=== PATIENT | female | born 1975 | race Caucasian/White ===

== ENCOUNTER 2017-03-27 20:37 | Emergency (ER) | payer SELFPAY ==
[2017-03-27 20:43] VITALS: BP 130/76; PULSE 78; TEMP 98.6; BMI 34.3
--- NOTE | 2017-03-27 20:46 | PDOC ---
Rapid Medical Evaluation Time Seen by Provider: 03/27/17 20:39 Medical Evaluation: Allergies Allergy/AdvReac Type Severity Reaction Status Date / Time No Known Allergies Allergy Verified 06/27/11 18:40 03/27/17 20:39 The patient presents with a chief complaint of: "back pain from neck to lungs". Seen at [facility] yesterday. I have performed a brief in-person evaluation of this patient; Pertinent physical exam findings: TTP of the paraspinous muscles of the thoracic back I have ordered the following: urine preg, thoracic spine x-ray The patient will proceed to the ED for further evaluation.
[2017-03-27] MEDS ORDERED: KETOROLAC TROMETHAMINE 60 MG/2 ML VIAL IM ONE (21:14)
[2017-03-27] MEDS ORDERED: KETOROLAC TROMETHAMINE 60 MG/2 ML VIAL ONE (21:27)
--- NOTE | 2017-03-27 21:56 | PDOC ---
History of Present Illness - General Chief Complaint: Back Pain Stated Complaint: BACK PAIN Time Seen by Provider: 03/27/17 20:39 History Source: Patient Exam Limitations: No Limitations - History of Present Illness Initial Comments: 03/27/17 21:56 41 yr female c/o pain to her right upper back in between shoulder blades for one week, worse at night unable to sleep well. no SOB no fever no chest pain . Pt states pain is worse with movement and with touch. Occurred: reports: last week Severity: reports: moderate Pain Location: reports: back Method of Injury: Yes: unknown Past History - Past Medical History Allergies/Adverse Reactions: Allergies Allergy/AdvReac Type Severity Reaction Status Date / Time No Known Allergies Allergy Verified 03/27/17 20:44 Home Medications: Ambulatory Orders Diazepam [Valium] 5 mg PO Q8H PRN #9 tablet MDD 15mg 03/27/17 Gabapentin [Neurontin -] 300 mg PO Q8H 03/27/17 Naproxen [Naprosyn -] 500 mg PO BID 03/27/17 COPD: No Kidney Stones: Yes - Suicide/Smoking/Psychosocial Hx Smoking Status: No Smoking History: Never smoked Have you smoked in the past 12 months: No Number of Cigarettes Smoked Daily: 0 Information on smoking cessation initiated: No Hx Alcohol Use: No Drug/Substance Use Hx: No Substance Use Type: None Trauma Specific PMHX - Complaint Specific PMHX Arthritis: No Back Injury: No Neck Injury: No Hx Sacro Iliac Joint Dysfunction: No Review of Systems - Review of Systems Able to Perform ROS?: Yes Is the patient limited [place] proficient: No Constitutional: No: Symptoms Reported HEENTM: No: Symptoms Reported Respiratory: No: Symptoms reported Cardiac (ROS): No: Symptoms Reported ABD/GI: No: Symptoms Reported : No: Symptoms Reported Musculoskeletal: Yes: Symptoms Reported Integumentary: No: Symptoms Reported *Physical Exam - Vital Signs Last Vital Signs Temp Pulse Resp BP Pulse Ox 98.6 F 78 18 130/76 100 03/27/17 20:40 03/27/17 20:40 03/27/17 20:40 03/27/17 20:40 03/27/17 20:40 - Physical Exam General Appearance: Yes: Nourished, Appropriately Dressed HEENT: positive: EOMI, ANNMARIE, TMs Normal, Pharynx Normal Neck: positive: Supple Respiratory/Chest: positive: Lungs Clear, Normal Breath Sounds. negative: Chest Tender Cardiovascular: positive: Regular Rhythm, Regular Rate Gastrointestinal/Abdominal: positive: Normal Bowel Sounds, Soft Musculoskeletal: positive: Normal Inspection, Muscle Spasm (right trapezius muscle with point tenderness, spasm noted ). negative: Vertebral Tenderness Extremity: positive: Normal Capillary Refill, Normal Inspection, Normal Range of Motion Integumentary: positive: Normal Color, Dry, Warm Neurologic: positive: Fully Oriented, Alert, Normal Mood/Affect, Normal Response , Motor Strength 07/29 ED Treatment Course - ADDITIONAL ORDERS Additional order review: Laboratory Results 03/27/17 20:50 Urine HCG, Qual Negative - Medications Given in the ED: ED Medications Discontinued Medications Generic Name Dose Route Start Last Admin Trade Name Frevelvet PRN Reason Stop Dose Admin Ketorolac Tromethamine 60 mg 03/27/17 21:14 03/27/17 21:46 Toradol Injection - IM 03/27/17 21:15 60 mg ONCE ONE Administration Medical Decision Making - Medical Decision Making 03/27/17 22:00 cc: pain to right upper back reproducable with touch and with movement no fever nos SOB no chest pain no smoking, no OCP no recent travel or history of surgery will give toradol and valium follow up with PMD xray ordered from triage pt understands to follow with PMD for complete evaluation if pain continues or worsens to return to ER *DC/Admit/Observation/Transfer Diagnosis at time of Disposition: Muscle spasm of back - Discharge Dispostion Disposition: HOME Condition at time of disposition: Improved - Prescriptions Prescriptions: Diazepam [Valium] 5 mg PO Q8H PRN #9 tablet MDD 15mg PRN Reason: Muscle Spasms - Referrals Referrals: Nithin Gudino MD [Staff Physician] - - Patient Instructions Additional Instructions: take the valium as prescribed you can take with the naprosyn pain medicine you have from the other hospital warm compresses to the area of pain can help follow with your doctor or in 1-2 days for follow up , this is important to complete your evaluation we will call you if the xray read by the radiologist is indicating any difference return to ER for any worsening symptoms - Post Discharge Activity
== END 2017-03-27 22:41 | disposition home or self-care (01) ==
LOC: JERFT 20:37
PROC: 3E0233Z Introduction of Anti-inflammatory into Muscle, Percutaneous Approach (ICD-10-PCS; principal; 2017-03-27)
DX: M62.830 Muscle spasm of back (principal)
CPT/HCPCS: 72070-TC; 84703; 99281-25

== ENCOUNTER 2021-03-22 21:11 | Emergency (ER) | payer OTHER ==
[2021-03-22 22:06] VITALS: BP 127/88; PULSE 86; TEMP 99.4; BMI 41.8
== END 2021-03-22 23:12 | disposition home or self-care (01) ==
LOC: JERFT 21:11
DX: J02.9 Acute pharyngitis, unspecified (principal)
CPT/HCPCS: 99283-25; C9803; U0003; U0005